=== PATIENT | female | born 2000 | race Two or more races ===

== ENCOUNTER 2025-01-30 03:13 | Inpatient (IN) | payer MEDICAID ==
[~2025-01-30] VITALS: Ht 154.9 cm; Wt 56.7 kg
[2025-01-30 03:48] LABS: BASOPHILS # (AUTO) 0.1 K/uL (0.0-0.2); BASOPHILS % (AUTO) 0.4 % (0.0-2.0); EOSINOPHILS # (AUTO) 0.1 K/uL (0.0-0.7); EOSINOPHILS % (AUTO) 0.9 % (0.0-6.0); HEMATOCRIT 37 % (33-45); HEMOGLOBIN 11.8 g/dL (11.5-14.8); LYMPHOCYTES # (AUTO) 2.2 K/uL (0.8-4.8); LYMPHOCYTES % (AUTO) 17.5 % (20.0-44.0); MEAN CORPUSCULAR HEMOGLOBIN 25 PG (26.0-33.0); MEAN CORPUSCULAR HGB CONC 32 g/dl (31.0-36.0); MEAN CORPUSCULAR VOLUME 76 fL (82-100); MONOCYTES # (AUTO) 1.2 K/uL (0.1-1.30); MONOCYTES % (AUTO) 9.4 % (2.0-12.0); NEUTROPHILS # (AUTO) 9.2 K/uL (1.8-8.9); NEUTROPHILS % (AUTO) 71.8 % (43.0-81.0); PLATELET COUNT (AUTO) 331 K/uL (150-450); RED BLOOD CELL COUNT(AUTO) 4.82 MIL/uL (4.0-5.2); RED CELL DISTRIBUTION WIDTH 15.1 % (11.5-15.0); WHITE BLOOD COUNT (AUTO) 12.8 K/uL (4.3-11.0)
[2025-01-30] MEDS ORDERED: MORPHINE SULFATE INJ 4 MG/ML DISP.SYRIN ONE ×2 (03:48→06:57)
[2025-01-30] MEDS ORDERED: ONDANSETRON HCL/PF 4 MG/2 ML VIAL ONE ×2 (03:48→06:56)
[2025-01-30 03:49] LABS: BILIRUBIN,URINE NEGATIVE (NEGATIVE); BLOOD, URINE TRACE-INTA Ery/uL (NEGATIVE); COLOR,URINE LIGHT YELLOW (YELLOW); KETONES,URINE NEGATIVE (NEGATIVE); LEUKOCYTE ESTERASE ,URINE 1+ (NEGATIVE); NITRITE, URINE NEGATIVE (NEGATIVE); PROTEIN,URINE NEGATIVE (NEGATIVE); UGLUCOSE NEGATIVE (NEGATIVE); UROBILINOGEN,URINE 0.2 EU/dL (0.2)
[2025-01-30 03:50] LABS: APPEARANCE,URINE SLIGHTLY CLOUDY (CLEAR)
[2025-01-30 03:51] LABS: PREGNANCY TEST URINE QUAL NEGATIVE (NEGATIVE)
[2025-01-30 03:52] LABS: CALCIUM, SERUM 8.7 mg/dL (8.5-10.1); CREATININE 0.6 mg/dL (0.6-1.3); POTASSIUM 3.7 mmol/L (3.5-5.1)
[2025-01-30] MEDS: ONDANSETRON HCL/PF 4 MG/2 ML VIAL IVP ONE (03:56)
[2025-01-30] MEDS: MORPHINE SULFATE INJ 2 MG/ML DISP.SYRIN IV ONE ×2 (03:56→07:02)
[2025-01-30 03:59] LABS: BILIRUBIN,DIRECT 0.1 mg/dL (0.0-0.2); BILIRUBIN,TOTAL 0.3 mg/dL (0.2-1.0); TOTAL PROTEIN, SERUM 7.5 g/dL (6.4-8.2)
[2025-01-30 04:03] LABS: ADD URINE CULTURE YES; BACTERIA,URINE Rare /HPF (None Seen); RBC,URINE 0-2 /HPF (0-2); SQUAMOUS EPITHELIAL CELL,UR Few /HPF (None Seen)
[2025-01-30 04:04] LABS: SPERM,URINE Present /HPF (None Seen)
[2025-01-30] MEDS ORDERED: KETOROLAC TROMETHAMINE 15 MG/ML VIAL ONE ×2 (05:36→07:59)
[2025-01-30] MEDS: KETOROLAC TROMETHAMINE 15 MG/ML VIAL IV ONE ×2 (05:39→08:05)
[2025-01-30] MEDS ORDERED: NITR100C6 PO (05:45)
[2025-01-30] MEDS: ONDANSETRON HCL/PF - ER 4 MG/2 ML VIAL IV ONE (07:02)
[2025-01-30] MEDS ORDERED: HYDROMORPHONE 1 MG/1 ML DISP.SYRIN ONE ×3 (07:59→14:20)
[2025-01-30] MEDS ORDERED: ACETAMINOPHEN ES 500 MG TABLET ONE (07:59)
[2025-01-30] MEDS: ACETAMINOPHEN ES 500 MG TABLET PO ONE (08:03)
[2025-01-30] MEDS: HYDROMORPHONE 1 MG/1 ML DISP.SYRIN IV ONE ×3 (08:11→14:30)
[2025-01-30] MEDS ORDERED: IBUP-1490 PO (14:17)
[2025-01-30] MEDS ORDERED: ACET-868 PO (14:17)
[2025-01-30] MEDS ORDERED: CEFTRIAXONE 1GM BAG (ER ONLY) 50 ML IV ONE (14:19)
[2025-01-30] MEDS ORDERED: Z GUARD REMEDY 4 OZ OINT TP PRN (14:30)
[2025-01-30] MEDS ORDERED: MAGNESIUM HYDROXIDE 30 ML UDC PO PRN (14:30)
[2025-01-30] MEDS ORDERED: MAG HYDROX/AL HYDROX/SIMETH 30 ML UDC PO PRN (14:30)
[2025-01-30] MEDS: CEFTRIAXONE 1GM BAG (ER ONLY) 1 GM/50 ML PIGGYBACK IV ONE (14:35)
[2025-01-30 15:45] LABS: HEMOGLOBIN 10.7 g/dL (11.5-14.8)
[2025-01-30] MEDS: IV NS 0.9% 1,000 ML IV PRN (15:57)
[2025-01-30 16:00] VITALS: BP 109/73; TEMP 98.1; O2SAT 98
[2025-01-30 16:22] VITALS: BP 109/73; TEMP 98.1; O2SAT 98
[2025-01-30] MEDS: HYDROMORPHONE 1 MG/1 ML DISP.SYRIN IV PRN (16:49)
[2025-01-30] MEDS: ONDANSETRON HCL/PF 4 MG/2 ML VIAL IVP PRN (17:32)
[2025-01-30 20:27] VITALS: BP 112/67; TEMP 97.7; O2SAT 100
[2025-01-30] MEDS: ACETAMINOPHEN 325 MG TABLET PO PRN (22:53)
[2025-01-31 06:46] LABS: BASOPHILS % (AUTO) 0.3 % (0.0-2.0); EOSINOPHILS # (AUTO) 0.1 K/uL (0.0-0.7); EOSINOPHILS % (AUTO) 0.9 % (0.0-6.0); HEMATOCRIT 33 % (33-45); HEMOGLOBIN 10.8 g/dL (11.5-14.8); LYMPHOCYTES # (AUTO) 1.7 K/uL (0.8-4.8); LYMPHOCYTES % (AUTO) 13.7 % (20.0-44.0); MEAN CORPUSCULAR HEMOGLOBIN 25 PG (26.0-33.0); MEAN CORPUSCULAR HGB CONC 33 g/dl (31.0-36.0); MEAN CORPUSCULAR VOLUME 77 fL (82-100); MONOCYTES # (AUTO) 0.9 K/uL (0.1-1.30); MONOCYTES % (AUTO) 7.8 % (2.0-12.0); NEUTROPHILS # (AUTO) 9.3 K/uL (1.8-8.9); NEUTROPHILS % (AUTO) 77.3 % (43.0-81.0); PLATELET COUNT (AUTO) 251 K/uL (150-450); RED BLOOD CELL COUNT(AUTO) 4.27 MIL/uL (4.0-5.2); RED CELL DISTRIBUTION WIDTH 14.4 % (11.5-15.0)
[2025-01-31 07:28] LABS: CALCIUM, SERUM 8.2 mg/dL (8.5-10.1); CREATININE 0.5 mg/dL (0.6-1.3); PHOSPHORUS 4.4 mg/dL (2.5-4.9); POTASSIUM 4.1 mmol/L (3.5-5.1)
[2025-01-31 08:00] VITALS: BP 90/51; TEMP 98.6; O2SAT 99
[2025-01-31 16:00] VITALS: BP 103/69; TEMP 97.7; O2SAT 94
[2025-01-31 20:00] VITALS: BP 119/76; TEMP 99; O2SAT 100
[2025-02-01 08:00] VITALS: BP 118/76; TEMP 98.6; O2SAT 99
== END 2025-02-01 11:26 | disposition left against medical advice (07) | DRG 532 ==
LOC: ER 03:15 → MED 14:13
PROVIDERS: ADMIT Internal Medicine; ATTEND Internal Medicine
DX: N83.291 Other ovarian cyst, right side (principal); D25.9 Leiomyoma of uterus, unspecified; R10.9 Unspecified abdominal pain; Z95.2 Presence of prosthetic heart valve
CPT/HCPCS: 36415; 76856-TC; 80048-TC; 80076-TC; 81001; 83690-TC; 83735-TC; 84100-TC; 84703-TC; 85025-TC; 85027-TC; 87086-TC; 87210-TC; A4223; G0378; J0696; J1171; J1885; J2270; J2405; J7030